=== PATIENT | male | born 1945 | race Caucasian/White ===

== ENCOUNTER 2016-05-14 08:48 | Day surgery (SDC) | payer OTHER ==
[2016-05-13 14:11] VITALS: BMI 38.6
[2016-05-14 09:20] VITALS: BP 139/84; PULSE 76; TEMP 97.4
== END 2016-05-14 10:28 | disposition home or self-care (01) ==
LOC: JASU-SURG 08:48
PROVIDERS: ATTEND Urology
PROC: 0VT08ZZ Resection of Prostate, Via Natural or Artificial Opening Endoscopic (ICD-10-PCS; principal; 2016-05-14)
DX: Z53.8 Procedure and treatment not carried out for other reasons (principal)

== ENCOUNTER 2016-05-21 08:23 | Day surgery (SDC) | payer OTHER ==
[2016-05-20 17:15] VITALS: BMI 38.6
[2016-05-21] MEDS ORDERED: MIDAZOLAM HCL 2 MG/2 ML SINGLE DOSE VIAL ONE (10:09)
[2016-05-21] MEDS ORDERED: LEVOFLOXACIN 500 MG IVPB 100 ML IVPB ONE (10:36)
[2016-05-21] MEDS ORDERED: LEVOFLOXACIN 500 MG PREMIX BAG IVPB ONE (10:37)
[2016-05-21] MEDS ORDERED: ACETAMINOPHEN 325 MG TABLET (FP) PO PRN (10:46)
[2016-05-21] MEDS ORDERED: oxyCODONE HCL 5 MG TABLET PO PRN (10:46)
[2016-05-21] MEDS ORDERED: ONDANSETRON 4 MG/2 ML VIAL IVPUSH PRN (10:46)
[2016-05-21] MEDS ORDERED: FUROSEMIDE 40 MG/4 ML INJECTABLE VIAL ONE (11:19)
--- NOTE | 2016-05-21 11:55 | OP ---
Operative Note - Note: Operative Date: 05/21/16 Pre-Operative Diagnosis: BPH with obstruction Operation: cysto/Bipolar TURP/TURVP Findings: Trilobar hyperplasia Post-Operative Diagnosis: Same as Pre-op Surgeon: Blaine Junior Anesthesiologist/TESTER OPERATOR HELPER: Diana Calabrese Anesthesia: Spinal Specimens Removed: prostate chips Estimated Blood Loss (mls): 25 Drains & Tubes with Location: 26fr mccloud Operative Report Dictated: Yes
--- NOTE | 2016-05-21 16:11 | EKG ---
Test Reason : Blood Pressure : / mmHG Vent. Rate : 047 BPM Atrial Rate : 047 BPM P-R Int : 198 ms QRS Dur : 092 ms QT Int : 458 ms P-R-T Axes : 008 -04 052 degrees QTc Int : 405 ms SINUS BRADYCARDIA OTHERWISE NORMAL ECG WHEN COMPARED WITH ECG OF 11-FEB-2001 14:54, NO SIGNIFICANT CHANGE WAS FOUND Confirmed by SHALINI ESTRADA MD ([id number]) on 05/21/2016 4:11:00 PM Referred By: Blaine Junior Confirmed By:SHALINI ESTRADA MD
[2016-05-21] MEDS: LACTATED RINGERS SOLUTION 1,000 ML IV SCH (21:22)
[2016-05-22] MEDS ORDERED: oxyCODONE HCL 5 MG TABLET PO ONE (00:25)
--- NOTE | 2016-05-22 08:34 | OP ---
DATE OF OPERATION: PREOPERATIVE DIAGNOSIS: Benign prostatic hypertrophy with obstructive urinary symptoms. POSTOPERATIVE DIAGNOSIS: Benign prostatic hypertrophy with obstructive urinary symptoms. PROCEDURE: Bipolar transurethral resection of the prostate and bipolar vaporization of the prostate. SURGEON: James Hopkins MD INDICATIONS: The patient is a 71-year-old male with BPH and obstructive urinary symptoms who failed medical management and elected to undergo a TURP. Understood the risks of bleeding, infection, impotence, incontinence, stricture formation, potential need for additional procedures, injury to adjacent organs, and also incontinence and impotence. DESCRIPTION OF PROCEDURE: After informed consent was obtained, the patient was taken to the OR and placed upon the table. Spinal anesthetic was then given. He was prepped and draped in the dorsal lithotomy position. A 26 sheath resectoscope was inserted in the urethra without difficulty. The anterior urethra was normal. The prostatic urethra was visually occlusive with trilobar hypoplasia and a large median lobe. The bladder was visualized. No tumors or stones noted in the bladder. At this point then using the Olympus bipolar , the median bar was taken down to the level of the bladder neck and was taken down distally. Then the lateral tissue was taken down circumferentially. No resection was carried out within 1 cm of the verumontanum to minimize the chance of incontinence. The prostate chips were then removed with Ellik evacuator and then the PlasmaButton was used to vaporize the tissue and cauterize until there was no active bleeding. Resectoscope was then removed and a 26-[place] Villanueva was placed to straight drainage. Urine was clear. The patient was then awoken from anesthesia and transferred to the recovery in stable condition. There were no complications. Estimated blood loss was 25 mL. JAMES HOPKINS M.D. [id number]
[2016-05-22] MEDS: LACTATED RINGERS SOLUTION 1,000 ML IV SCH (10:41)
[2016-05-22 11:39] VITALS: BP 123/60; PULSE 60; TEMP 98.2
--- NOTE | 2016-05-22 12:27 | PATH ---
Surgical Pathology Report Patient Name: FILI PEREZ Med. Rec. #: [id number] /Age/Gender: 1945 (Age: 71) / M Account: [id number] Location: [address] [place] [address]/[facility] Taken: 05/21/2016 Received: 05/21/2016 Reported: 05/22/2016 Physicians: Blaine Junior M.D. Specimen(s) Received PROSTATE CHIPS Clinical History BPH Final Diagnosis PROSTATE, TUR: BENIGN PROSTATIC HYPERPLASIA WITH AREAS OF ATROPHY. Electronically Signed Elmer Witt M.D. Gross Description Received in formalin labeled "prostate tissue," is a 7 g, 6.5 x 4.5 x 0.3 cm aggregate of multiple page, irregular, firm to rubbery portions of tissue, consistent with prostate tissue. The specimen is entirely submitted in 8 cassettes. /05/21/201605/21/2016
--- NOTE | 2016-05-22 12:40 | PN ---
Progress Note (short form) - Note Progress Note: afebrile urine pink off CBI abd soft d/c home today f/u next week for mccloud removal
== END 2016-05-22 14:33 | disposition home or self-care (01) ==
LOC: JASU-SURG 08:23 → JASUSAT 08:23 → J6S 18:13 → JASUSAT 05-22 14:33
PROVIDERS: ATTEND Urology
PROC: 0VT08ZZ Resection of Prostate, Via Natural or Artificial Opening Endoscopic (ICD-10-PCS; principal; 2016-05-21 09:30)
DX: N40.1 Benign prostatic hyperplasia with lower urinary tract symptoms (principal); N13.8 Other obstructive and reflux uropathy
CPT/HCPCS: 88305-TC; 93005; 93010; 94760